=== PATIENT | male | born 1965 | race Caucasian/White ===

== ENCOUNTER 2023-12-30 15:46 | Emergency (ER) | payer OTHER, SELFPAY ==
[2023-12-30 15:49] VITALS: BP 170/81; PULSE 79; RESP 18; TEMP 36.9; O2SAT 98; BMI 27.5
--- NOTE | 2023-12-30 16:04 | ED.GENADULT ---
HPI - General Adult General Chief complaint: Extremity Pain/Injury, Lower Stated complaint: previous fall; right leg pain and bruising Time Seen by Provider: 12/30/23 15:57 Source: patient Mode of arrival: ambulatory Limitations: no limitations History of Present Illness HPI narrative: [age] year male coming in today complaining of leg pain. Patient states that he fell at work almost 2 weeks ago. When he fell his legs slipped out from under him and he went down doing the splits and hit his leg on the back of a cabinet.He had immediate pain and subsequent bruising of the posterior thigh, bruising has now spread down the leg. He feels a throbbing in the back of the leg. He is concerned that is not healing appropriately, his family members also had concerned about the way that it looked. He has been walking. He has been doing his daily chores, he is a [employer]. States that if it starts to hurt he goes in rests and then goes back to his daily business. He denies any fevers. He is not short of breath. He does not feel that the leg is weak. Related Data Home Medications Medication Instructions Recorded Confirmed No Known Home Medications 12/30/23 12/30/23 Allergies Allergy/AdvReac Type Severity Reaction Status Date / Time No Known Drug Allergies Allergy Verified 12/30/23 15:53 Review of Systems Status of ROS: Reports: 6 or more systems reviewed and unremarkable except as noted in History and below [facility] Social History Smoking Status: Never smoker How often do you have a drink containing alcohol: never AUDIT-C Alcohol total score: 0 Non-prescribed substance use: denies use Exam Narrative: Exam Narrative: Well-nourished well-developed patient in no acute distress. Alert and oriented. Answers questions appropriately. Mood and affect are appropriate. Thoughts are goal oriented and rational. No tangential or magical thinking noted. Patient speaks in full sentences without needing to catch his breath. HEENT: Normocephalic atraumatic. Pupils are equally round reactive to light. Extraocular muscles are intact. Conjunctivae are moist without any icterus noted. Extremities: Patient's right leg has ecchymosis down the posterior medial thigh down to the distal calf area. Very is not significantly tender it is mildly swollen. There is no pallor of the skin. He has normal DP and PT pulses. He has normal strength at the hamstrings. His gait is normal. I do not feel any for masses or firm cords. The skin and underlying musculature is soft. There is yellowing around the outer edges of the large ecchymotic area Const: Vital Signs, click to edit/add: Vital Signs - 24 hr 12/30/23 15:49 Temperature 98.4 F Pulse Rate [Pulse Oximeter] 79 Respiratory Rate 18 Blood Pressure [Ri ght Upper Arm] 170/81 H Pulse Oximetry 98 Oxygen Delivery Me thod Room Air Course Vital Signs Vital signs: Initial Vital Signs Temperature 98.4 F 12/30/23 15:49 Temperature Source Temporal Artery Scan 12/30/23 15:49 Pulse Rate 79 12/30/23 15:49 Respiratory Rate 18 12/30/23 15:49 Blood Pressure 170/81 H 12/30/23 15:49 Blood Pressure Mean 110 H 12/30/23 15:49 Blood Pressure Position Sitting 12/30/23 15:49 Pulse Oximetry 98 12/30/23 15:49 Oxygen Delivery Method Room Air 12/30/23 15:49 Vital Signs Temperature 98.4 F 12/30/23 15:49 Pulse Rate 79 12/30/23 15:49 Respiratory Rate 18 12/30/23 15:49 Blood Pressure 170/81 H 12/30/23 15:49 Pulse Oximetry 98 12/30/23 15:49 Oxygen Delivery Method Room Air 12/30/23 15:49 Temperature 98.4 F 12/30/23 15:49 Pulse Rate 79 12/30/23 15:49 Respiratory Rate 18 12/30/23 15:49 Blood Pressure 170/81 H 12/30/23 15:49 Pulse Oximetry 98 12/30/23 15:49 Oxygen Delivery Method Room Air 12/30/23 15:49 Medical Decision Making MDM Narrative Medical decision making narrative: 58-year-old male status post fall with large ecchymosis to the back of the leg. We discussed that this appears to be healing normally. Given that he is able to go about his daily business I do not think anything different needs to occur at this time. We discussed continuing with the treatment that he is doing which includes icing and NSAIDs. Can consider compression stockings. Patient had no other questions. We discussed reasons to return which would include worsening pain, redness or increased swelling of the areas. Discharge Plan Discharge Clinical Impression: Ecchymosis Patient Disposition: Home, Self-Care Condition: Stable Additional Instructions: The area of injury does appear to be healing normally. It can take many weeks for healing to be completed given the amount of bruising that is present. Continue what you are currently doing with the icing. Okay to use Tylenol or ibuprofen as needed for discomfort. Would also consider using compression stockings for the next few weeks. Return to the ER or follow-up with your primary care provider if the area begins to hurt more, becomes red or begins to swell. Prescriptions: No Action No Known Home Medications Stand Alone Forms: [employer] Info Instructions
== END 2023-12-30 16:41 | disposition home or self-care (01) ==
LOC: ED 16:39
PROVIDERS: Emergency Provider Family Medicine
DX: S80.11XA Contusion of right lower leg, initial encounter (principal); W22.8XXA Striking against or struck by other objects, initial encounter
CPT/HCPCS: 99283